=== PATIENT | female | born 1945 | race Caucasian/White ===

== ENCOUNTER 2016-12-20 18:11 | Emergency (ER) | payer OTHER ==
[~2016-12-20] VITALS: Ht 157.5 cm; Wt 45.6 kg
[2016-12-20 18:15] VITALS: TEMP 36.6; Ht 157.5 cm; Wt 45.6 kg
[2016-12-20] MEDS ORDERED: FLUT0.15 NAE (18:36)
[2016-12-20] MEDS ORDERED: ONDA4TAB46 PO (18:36)
[2016-12-20] MEDS ORDERED: ALUM1SUS57 PO (18:36)
[2016-12-20] MEDS ORDERED: CALC500C3 PO (18:36)
[2016-12-20] MEDS ORDERED: LEVO75TA PO (18:36)
[2016-12-20] MEDS ORDERED: ACET-1256 PO (18:36)
[2016-12-20] MEDS ORDERED: CYAN500T SL (18:36)
[2016-12-20] MEDS ORDERED: CLBCRM30 EXT (18:36)
[2016-12-20 19:21] LABS: BASO % 1.4 %; BASO ABS # 0.06 K/uL (0-0.2); COMPLETE YES; HEMATOCRIT 32.5 % (37-47); IG% 0.2 %; LYMPH % 28.6 %; LYMPH ABS # 1.26 K/uL (1.2-3.4); MEAN CELL VOLUME 96.2 fL (80-100); MEAN CORPUSCULAR HEMOGLOBIN 32.2 pg (25-34); MEAN CORPUSCULAR HGB CONC 33.5 g/dl (32-36); MEAN PLATELET VOLUME 9.6 fL (7.4-10.4); MONO % 13.6 %; NEUT % 54.2 %; PLATELET COUNT 196 K/uL (130-400); RED BLOOD COUNT 3.38 M/uL (4.2-5.4); WHITE BLOOD COUNT 4.41 K/uL (4.8-10.8)
[2016-12-20 19:27] LABS: BUN/CREATININE RATIO 14.9 (10-20); CALCIUM 7.9 mg/dl (8.5-10.1); CREATININE 0.83 mg/dl (0.60-1.20); POTASSIUM 4.5 mmol/L (3.5-5.1)
--- NOTE | 2016-12-20 20:25 | DIAGNOSTIC IMAGING REPORT ---
LEFT LOWER EXTREMITY VENOUS DOPPLER HISTORY: Left leg pain. clot? Lower leg COMPARISON STUDY: None. FINDINGS: There is normal compressibility, flow, and augmentation within the left lower extremity deep venous system. IMPRESSION: No DVT within the left lower extremity. Electronically signed by: Eulogio Hernandez M.D. 12/20/2016 8:23 PM Dictated Date/Time: 12/20/2016 8:23 PM
--- NOTE | 2016-12-20 20:57 | EMERGENCY ROOM VISIT NOTE ---
History Report prepared by Raul: Brianda Joy Under the Supervision of: Dr. Sung Dela Cruz M.D. First contact with patient: 18:20 Chief Complaint: LEG PAIN,LEG INJURY Stated Complaint: POSSIBLE BLOOD CLOT IN LF LEG History of Present Illness The patient is a 71 year old female who presents to the Emergency Room with complaints of an episode of left leg swelling starting two hours ago. The patient states that she went to a Urgent Care center in [place] and they sent her here because they are worried she has a blood clot. The patient states that it came on suddenly and that an hour earlier the black and blue chiki was much larger. She reports that it seems to have gone down by itself. The patient denies bumping it, injuring it, being on blood thinners, being short of breath, and chest pain. Source of History: patient Onset: two hours ago Position: leg (left) Quality: other (swelling) Timing: other (episode) Associated Symptoms: No chest pain, No SOB Note: The patient complains of a black and blue chiki on her leg. The patient denies bumping it, injuring it, and being on blood thinners. Review of Systems All systems have been listed, reviewed, and are negative other than those previously mentioned. Please see Additional Medical History Sheet. 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 Surgical Problems: (1) Diabetic eye exam (2) H/O: hysterectomy (3) History of carpal tunnel surgery (4) History of colonoscopy (5) History of esophagogastroduodenoscopy (6) History of partial colectomy (7) History of partial surgical removal of colon (8) Hx of cholecystectomy (9) Hx of coronary angiogram (10) Hx of gastrostomy (11) hx removal of thyroid gland (12) hx remove stomach, total, w/felipe-en-y (13) Malignant neoplasm of thyroid gland Family History No significant family history Social History Smoking Status: Former Smoker Smokeless Tobacco Use: No Alcohol Use: none Marital Status: Housing Status: lives with significant other Current/Historical Medications Scheduled Acetaminophen (Tylenol), 1-2 TABS PO PRN Calcium Carbonate (Tums), 1 TAB PO QID Clobetasol Propionate (Clobetasol Propionate Cream 0.05%), 1 APPLN EXT PRN UD Cyanocobalamin (Vitamin B-12), 500 MCG SL DAILY Fluticasone Propionate (Nasal) (Flonase Allergy Relief), 2 SPRAYS LINSEY DAILY Levothyroxine Sodium (Synthroid), 75 MCG PO 6XWK Scheduled PRN Alum & Mag Hydrox-Simethicone (Mylanta Maximum Strength 400-400-40 mg/5Ml), 10- 20 ML PO BID PRN for Dyspepsia Ondansetron Hcl (Zofran), 4 MG PO Q6 PRN for Nausea Allergies Coded Allergies: Levofloxacin (Verified Allergy, Severe, DIZZY/NAUSEA, 12/20/16) DMDM Hydantoin (Verified Allergy, Unknown, RASH, 12/20/16) Latex (Verified Allergy, Unknown, RASH, 12/20/16) Penicillins (Verified Allergy, Unknown, UNKNOWN, 12/20/16) Triclosan (Verified Adverse Reaction, Intermediate, DRY, CRACKING SKIN, 12/20/16) Uncoded Allergies: PCMX-ANTIBACTERIAL (Allergy, Unknown, RASH, 12/20/16) Physical Exam Vital Signs Date Time Temp Pulse Resp B/P (MAP) Pulse Ox O2 Delivery O2 Flow Rate FiO2 12/20/16 21:20 72 18 166/84 98 Room Air 12/20/16 18:15 36.6 82 20 185/92 98 Room Air Physical Exam GENERAL: Patient awake, alert, oriented x 3. Patient follows commands. Patient does not appear toxic. Patient is adequately hydrated and well- nourished. SKIN: No erythema, pallor, cyanosis or rash HEENT: Normal head, pupils equal, reactive to light and accommodation. . LUNGS: Clear to auscultation. No wheezes, no rales, no rhonchi. HEART: No murmurs. No gallops. No rubs ABDOMEN: No masses, no rebound, no hepatomegaly or splenomegaly. EXTREMITIES: No pedal or pretibial edema. No calf or thigh tenderness. Has ecchymotic area on medial side of left lower leg. Multiple old abrasions from previous trauma. No significant swelling. No color change or change in temperature. NEUROLOGIC: Cranial nerves II-XII within normal limits. No gross motor sensory function deficits. Medical Decision & Procedures ER Provider Diagnostic Interpretation: Radiology results as stated below per my review and radiologist interpretation: LEFT LOWER EXTREMITY VENOUS DOPPLER HISTORY: Left leg pain. clot? Lower leg COMPARISON STUDY: None. FINDINGS: There is normal compressibility, flow, and augmentation within the left lower extremity deep venous system. IMPRESSION: No DVT within the left lower extremity. Electronically signed by: Eulogio Hernandez M.D. 12/20/2016 8:23 PM Dictated Date/Time: 12/20/2016 8:23 PM Laboratory Results 12/20/16 18:45 Red Blood Count 3.38, Mean Corpuscular Volume 96.2, Mean Corpuscular Hemoglobin 32.2, Mean Corpuscular Hemoglobin Concent 33.5, Mean Platelet Volume 9.6, Neutrophils (%) (Auto) 54.2, Lymphocytes (%) (Auto) 28.6, Monocytes (%) (Auto) 13.6, Eosinophils (%) (Auto) 2.0, Basophils (%) (Auto) 1.4, Neutrophils # (Auto ) 2.39, Lymphocytes # (Auto) 1.26, Monocytes # (Auto) 0.60, Eosinophils # (Auto ) 0.09, Basophils # (Auto) 0.06 12/20/16 18:45 Test 12/20/16 18:45 White Blood Count 4.41 K/uL (4.8-10.8) Red Blood Count 3.38 M/uL (4.2-5.4) Hemoglobin 10.9 g/dL (12.0-16.0) Hematocrit 32.5 % (37-47) Mean Corpuscular Volume 96.2 fL (80-100) Mean Corpuscular Hemoglobin 32.2 pg (25-34) Mean Corpuscular Hemoglobin Concent 33.5 g/dl (32-36) Platelet Count 196 K/uL (130-400) Mean Platelet Volume 9.6 fL (7.4-10.4) Neutrophils (%) (Auto) 54.2 % Lymphocytes (%) (Auto) 28.6 % Monocytes (%) (Auto) 13.6 % Eosinophils (%) (Auto) 2.0 % Basophils (%) (Auto) 1.4 % Neutrophils # (Auto) 2.39 K/uL (1.4-6.5) Lymphocytes # (Auto) 1.26 K/uL (1.2-3.4) Monocytes # (Auto) 0.60 K/uL (0.11-0.59) Eosinophils # (Auto) 0.09 K/uL (0-0.5) Basophils # (Auto) 0.06 K/uL (0-0.2) RDW Standard Deviation 47.1 fL (36.4-46.3) RDW Coefficient of Variation 13.4 % (11.5-14.5) Immature Granulocyte % (Auto) 0.2 % Immature Granulocyte # (Auto) 0.01 K/uL (0.00-0.02) Anion Gap 4.0 mmol/L (3-11) Est Creatinine Clear Calc Drug Dose 44.1 ml/min Estimated GFR () 81.7 Estimated GFR (Non- 70.4 BUN/Creatinine Ratio 14.9 (10-20) Calcium Level 7.9 mg/dl (8.5-10.1) Laboratory results as stated above per my review. ED Course 1823: Past medical records reviewed. The patient was evaluated in room C2B. A complete history and physical examination was performed. 2050: Upon reevaluation, the patient appeared to have improvement of her symptoms. I discussed today's findings with the patient. She verbalized agreement of the treatment plan. The patient was discharged home. Medical Decision Differential diagnoses include DVT, cellulitis, localized trauma with hematoma. Clinically the patient appears to have a small hematoma. The patient denies any trauma. Ultrasound does not reveal a clot. She does not have signs of infection. Her white count is not elevated. The patient will be treated conservatively. Medication Reconcilliation Current Medication List: was personally reviewed by me Blood Pressure Screening Patient's blood pressure: Elevated blood pressure Blood pressure disposition: Referred to PCP Impression Primary Impression: Traumatic hematoma of left lower leg Scribe Attestation The scribe's documentation has been prepared under my direction and personally reviewed by me in its entirety. I confirm that the note above accurately reflects all work, treatment, procedures, and medical decision making performed by me. Departure Information Dispostion Home / Self-Care Referrals Swallow,Alfredo B. (PCP) Forms HOME CARE DOCUMENTATION FORM, IMPORTANT VISIT INFORMATION Patient Instructions My [employer] Additional Instructions Apply heat intermittently to your left lower leg over the next 3 days. Elevate your leg as much as possible over the next 3 days. Follow-up with your family physician or return here if the swelling is not improving. Your blood pressure should be rechecked by your family physician
[2016-12-20 21:20] VITALS: BP 166/84; PULSE 72; O2SAT 98
== END 2016-12-20 21:29 | disposition home or self-care (01) ==
LOC: C.EDB 18:13 → C.EDC 21:29
DX: S80.12XA Contusion of left lower leg, initial encounter (principal); X58.XXXA Exposure to other specified factors, initial encounter; D64.9 Anemia, unspecified; E11.9 Type 2 diabetes mellitus without complications; E78.5 Hyperlipidemia, unspecified; E03.9 Hypothyroidism, unspecified; K75.81 Nonalcoholic steatohepatitis (NASH); E04.2 Nontoxic multinodular goiter; Z85.850 Personal history of malignant neoplasm of thyroid; Z87.891 Personal history of nicotine dependence; Z79.899 Other long term (current) drug therapy

== ENCOUNTER → 2017-03-10 | Day surgery (SDC) | payer OTHER ==
[2017-02-25 07:45] VITALS: Ht 160 cm; Wt 44.5 kg
[~2017-03-10] VITALS: Ht 160 cm; Wt 44.5 kg
[~2017-03-10] MED LIST: 500ML BSS 0.3ML EPI 1:1000PF IRRIG ONE; ACET-1256 PO; ACETAMINOPHEN 325 MG TAB PO PRN; ALUM1SUS57 PO; AMVISC PLUS 0.8ML SYRINGE INT OCU ONE; ATROPINE SULFATE 0.1 MG/ML 5ML SYR IV PRN; AcetaZOLAMIDE 250 MG TAB PO SCH; BETAXOLOL HCL 0.25% OP SUSP PER DROP CHARGE OPL SCH; BRIMONIDINE TART 0.2% OP SOLN PER DROP CHARGE ONE; BSS FLUSH ONE; CALC500C3 PO; CLBCRM30 EXT; CYAN500T SL; ENDOCOAT 0.85ML SYRINGE INT OCU ONE; EpHEDrine SULFATE INJ 50 MG/ML AMP IV PRN; EpINEphrine INJ 1MG/ML AMP 1 MG/ML AMP ONE; FLUT0.15 NAE; LACTATED RINGER'S 1000ML 500 ML IV SCH; LEVO75TA PO; LIDOCAINE 4% OP SOLN DROP CHARGE ONE; LIDOCAINE 4% OP SOLN DROP CHARGE OPL SCH; LIDOCAINE HCL 1% MPF 2 ML VIAL ONE; MIDAZOLAM HCL 1 MG/ML 2ML VIAL ONE; MIX: 4ML BSS 1ML EPI 1:1000 PF INSTIL ONE; MOXIFLOXACIN OPH SOLN PER DROP CHARGE ONE; OCUCOAT 1 ML SOLN IO ONE; ONDA4TAB46 PO; POVIDONE-IODINE OP SOLN 30 ML BTL ONE; PROPARACAINE 0.5% OP SOLN PER DROP CHARGE OPL SCH; TOBRAMYCIN/DEXAMETHASONE OPH OINT PER APPLN CHARGE ONE
--- NOTE | 2017-03-10 11:12 | History & Physical Bridge - SC ---
H&P Re-Evaluation Bridge Note: I have examined the patient, reviewed the History & Physical and in the interval since the performance of the History & Physical I have noted the following changes of clinical significance: No changes noted
[2017-03-10] MEDS: PHENYLEPHRINE HCL 2.5% OP SOLN PER DROP CHARGE OPL SCH ×2 (12:51→12:56)
[2017-03-10] MEDS: TROPICAMIDE 1% OP SOLN PER DROP CHARGE OPL SCH ×2 (12:52→12:57)
[2017-03-10] MEDS: CYCLOPENTOLATE HCL 1% OP SOLN PER DROP CHARGE OPL SCH ×2 (12:53→12:58)
[2017-03-10] MEDS: MOXIFLOXACIN OPH SOLN PER DROP CHARGE OPL SCH ×2 (12:54→13:01)
--- NOTE | 2017-03-10 13:38 | Discharge Instructions-SurgCtr ---
Discharge Instructions Date of Service Mar 10, 2017. Visit Reason for Visit: Cataract Left Eye Discharge Discharge Diagnosis / Problem: lens implant left eye Discharge Goals Goal(s): Improve function Activity Recommendations Activity Limitations: resume your previous activity Lifting Limitations: no more than 10 pounds Exercise/Sports Limitations: gradually increase as tolerated May Resume Sexual Activity: when tolerated Shower/Bathe: tomorrow Driving or Machine Use: resume 1 day after discharge Anesthesia . Post Anesthesia Instructions: If you have had General Anesthesia or IV Sedation: * Do not drive today. * Resume driving when surgeon permits. * Do not make important decisions or sign legal documents today. * Call surgeon for: 1. Temperature elevations greater than 101 degrees F. 2. Uncontrollable pain. 3. Excessive bleeding. 4. Persistent nausea and vomiting. 5. Medication intolerance (nausea, vomiting or rash). * For nausea and vomiting use only clear liquids such as: tea, soda, bouillon until nausea subsides, then gradually increase diet as tolerated. * If you have any concerns or questions, call your surgeon's office. If physician is unavailable and it is an emergency, call 911 or go to the nearest emergency room. . Instructions / Follow-Up Instructions / Follow-Up ACTIVITY RECOMMENDATIONS: * Light activities. * Mild irritation and blurred vision are common for the first few days. * You may walk outside, read, watch television. * Redness around the white part of the eye is common. MEDICATIONS: Resume previous medications unless instructed otherwise by your surgeon. * Take white Diamox (Acetazolamide) tablet at 4 pm today. Start all eye drops at 4 pm today: * Eye drops (today and tomorrow): Prednisone - one drop in operative eye every 3 hours while awake Ofloxacin - one drop in operative eye every 3 hours while awake SPECIAL CARE INSTRUCTIONS: * Tape plastic shield over eye to sleep at night. Call your doctor at with any concerns or problems. FOLLOW UP VISIT: Follow-up with Dr Harmon at [facility] office as scheduled. Diet Recommendations Home Diet: no limitations Procedures Procedures Performed: cataract extraction with lens implant Pending Studies Studies pending at discharge: no Medical Emergencies . Who to Call and When: Medical Emergencies: If at any time you feel your situation is an emergency, please call 911 immediately. . Non-Emergent Contact Non-Emergency issues call your: Slat Pickler Call Non-Emergent contact if: your pain is not controlled [phone] . . "Provider Documentation" section prepared by Josr Harmon. .
--- NOTE | 2017-03-10 13:39 | [facility] Operative Report ---
Operative Report Date of Service Mar 10, 2017. Operative Report 1. PREOPERATIVE DIAGNOSIS: Senile nuclear cataract, left eye. 2. POSTOPERATIVE DIAGNOSIS: Senile nuclear cataract, left eye. 3. PROCEDURE: Phacoemulsification of left cataract with posterior chamber lens implant, type [employer], model MI60L, power +22.5 diopters. ANESTHESIA: Local standby. SURGEON: Dr. Harmon. COMPLICATIONS: None. OPERATING TIME: 10 minutes. 4. OPERATION AND FINDINGS: DESCRIPTION OF PROCEDURE: The left pupil was dilated. The anesthetic was administered using a topical technique. The left eye was prepped and draped. A speculum was placed. A clear corneal incision was formed. The chamber was filled with Amvisc Plus and Endocoat. Epinephrine solution was used. A paracentesis was placed. A capsulorrhexis was performed. The nucleus was hydrodissected. The lens was removed with phacoemulsification. Time was 4.94 seconds. The aspiration unit was used to remove the cortex. The capsule was filled with Amvisc Plus. The lens implant was folded and placed into the capsule. The incision was hydrated. The Amvisc was aspirated. The wound was secure. The chamber was deep. The pupil was round. Brimonidine, TobraDex ointment and Vigamox solution were placed. The speculum was removed. The patient was returned to the Recovery Room in stable condition. I attest to the content of the Intraoperative Record and any orders documented therein. Any exceptions are noted below. The scribe's documentation has been prepared in my presence, under my direction and personally reviewed by me in its entirety. I confirm that the note above accurately reflects all work, treatment, procedures, and medical decision making performed by me. I personally scribed for Josr Harmon M.D. ([facility]) on 03/10/17 at 13:39. Electronically submitted by Pilar Peck ([email or web address]).
[2017-03-10 13:42] VITALS: TEMP 37
--- NOTE | 2017-03-10 13:50 | Anesthesiology Progress Note ---
Anesthesia Post Op Note Date & Time Mar 10, 2017 at 13:50 Vital Signs Pain Intensity: 0 Vital Signs Past 12 Hours Date Time Temp Pulse Resp B/P (MAP) Pulse Ox O2 Delivery O2 Flow Rate FiO2 03/10/17 12:45 36.7 92 16 185/90 (121) 97 Room Air Notes Mental Status: alert / awake / arousable, participated in evaluation Nausea / Vomiting: adequately controlled Pain: adequately controlled Airway Patency, RR, SpO2: stable & adequate BP & HR: stable & adequate Hydration State: stable & adequate Anesthetic Complications: no major complications apparent
[2017-03-10 14:11] VITALS: BP 151/75; PULSE 68; O2SAT 97
== END | disposition home or self-care (01) ==
LOC: X.SURG 10:19
PROVIDERS: ATTEND Specialist
DX: H25.12 Age-related nuclear cataract, left eye (principal); K21.9 Gastro-esophageal reflux disease without esophagitis; I10 Essential (primary) hypertension; E78.5 Hyperlipidemia, unspecified; E11.9 Type 2 diabetes mellitus without complications; E03.9 Hypothyroidism, unspecified; Z87.891 Personal history of nicotine dependence; Z85.850 Personal history of malignant neoplasm of thyroid